=== PATIENT | female | born 1975 | race Caucasian/White ===

== ENCOUNTER 2017-07-04 08:17 | Day surgery (SDC) | payer BC ==
[2017-07-04] MEDS ORDERED: Propofol 10 mg/ml Inj (20 ML) ONE (08:34)
[2017-07-04 09:00] VITALS: BMI 23.3
[2017-07-04] MEDS ORDERED: HYDROmorphone 0.5 mg/0.5 ml ISec IVP PRN (09:27)
[2017-07-04] MEDS ORDERED: Lactated Ringer's 1,000 ML IV SCH (09:30)
[2017-07-04] MEDS ORDERED: Doxycycline 100 mg Inj ONE (09:48)
--- NOTE | 2017-07-04 10:34 | PCM.SURG1 ---
Surgeon's Initial Post Op Note - Surgeon's Notes Surgeon: Dr. Giraldo Blood Bank Manager: none Type of Anesthesia: General LMA Pre-Operative Diagnosis: dysmenorrhea, menorrhagia, endometrial polyps Operative Findings: bilateral ostia obstructed with scar tissue. Possible endometrial polyp visualized. Post-Operative Diagnosis: same Operation Performed: hysteroscopy, d&c and targeted biopsy with myosure Specimen/Specimens Removed: endometrial biopsy, endometrial curettings Estimated Blood Loss: EBL {In ML}: 20 Blood Products Given: N/A Drains Used: No Drains Post-Op Condition: Good Date of Surgery/Procedure: 07/04/17 Time of Surgery/Procedure: 10:30
--- NOTE | 2017-07-04 10:42 | CP.PCM.DIS ---
Provider - Provider Date of Admission: 07/04/17 Attending physician: Maryam Giraldo Time Spent in preparation of Discharge (in minutes): 10 Diagnosis - Discharge Diagnosis (1) Dysmenorrhea Status: Acute (2) Menorrhagia Status: Acute (3) Endometrial polyp Status: Acute Hospital Course - Hospital Course Hospital Course: Patient underwent hysteroscopy, D&C with myosure and tolerated the procedure well. Patient was then discharged home after ambulating, voiding and tolerating regular diet. - Date & Time of H&P Date of H&P: 07/04/17 Time of H&P: 09:45 Discharge Exam - Eye Exam Eye Exam: Normal appearance - Respiratory Exam Respiratory Exam: NORMAL BREATHING PATTERN - Cardiovascular Exam Cardiovascular Exam: REGULAR RHYTHM - GI/Abdominal Exam GI & Abdominal Exam: Unremarkable - Exam External exam: NORMAL EXTERNAL EXAM - Extremities Exam Extremities exam: normal inspection - Neurological Exam Neurological exam: Alert, Oriented x3 - Psychiatric Exam Psychiatric exam: Normal Affect, Normal Mood Discharge Plan - Follow Up Plan Condition: GOOD Disposition: DISCHARGED TO HOME CARE
[2017-07-04 12:15] VITALS: RESP 16
[2017-07-04 17:31] VITALS: BP 93/59; PULSE 65; TEMP 97.9; O2SAT 100
--- NOTE | 2017-07-04 21:53 | OP ---
PROCEDURE DATE: 07/04/2017 SURGEON: Maryam Giraldo MD SUCTION PLATE ROLLER HAND: None. TYPE OF ANESTHESIA: General LMA. PREOPERATIVE DIAGNOSES: Dysmenorrhea, menorrhagia, endometrial polyps. POSTOPERATIVE DIAGNOSES: Dysmenorrhea, menorrhagia, endometrial polyps. INTRAOPERATIVE FINDINGS: Uterus approximately 10-week size, bilateral ostia were obstructed due to scar tissue, possible endometrial polyp visualized but mostly just above the endometrium. SURGERY PERFORMED: Hysteroscopy, dilatation and curettage, and targeted biopsy with MyoSure. SPECIMENS REMOVED: Endometrial biopsy and endometrial curettings. ESTIMATED BLOOD LOSS: 20 mL. BLOOD PRODUCTS GIVEN: There were no blood products given. DRAINS: There were no drains. POSTOPERATIVE CONDITION: Stable. ADDITIONAL COMMENTS: All lap counts and instrument counts were correct x2. DESCRIPTION OF PROCEDURE: After all relevant documentation was reviewed and signed by , the patient was taken back to the OR. She was prepped and draped in the usual sterile fashion after being placed under general anesthesia and positioned in lithotomy. On bimanual examination, the previously mentioned findings were noted. A speculum was then introduced to reveal excellent visualization of the cervix. The cervix appeared friable with ectropion visible. The posterior lip of the cervix was then grabbed with a single-tooth tenaculum and the cervix was then serially dilated. The hysteroscope was then introduced and then we proceeded with the targeted biopsy with MyoSure. Once that was completed, the hysteroscope was then removed, deficit was 65 mL. A gentle sharp curettage was then performed and sent off to Pathology. Examination of the cervix revealed some bleeding from the posterior lip of the cervix, which was made hemostatic with the use of Monsel's and Surgicel. The patient tolerated the procedure well and then was taken to the recovery room in stable condition. Maryam Giraldo MD
== END 2017-07-04 14:13 | disposition home health service (06) ==
LOC: C.SDS 08:17
PROVIDERS: ATTEND Obstetrics & Gynecology
DX: N92.0 Excessive and frequent menstruation with regular cycle (principal); N94.6 Dysmenorrhea, unspecified
CPT/HCPCS: 58558; 88305; J1170; J1885; J2001; J2405; J2704; J3010